=== PATIENT | female | born 1940 | race Caucasian/White ===

== ENCOUNTER 2017-01-03 11:50 | Outpatient (CLI) | payer MEDICARE ==
[~2017-01-03] VITALS: Ht 12.7 cm; Wt 69.0 kg
[2017-01-03] MEDS ORDERED: HYDRODIURIL50 MG PO (12:06)
[2017-01-03] MEDS ORDERED: SYNTHROID 0.0.025 MG PO (12:07)
[2017-01-03] MEDS ORDERED: ZOCOR 20MG20 MG PO (12:07)
[2017-01-03] MEDS ORDERED: COUMADIN 5MG5 MG/TAB PO (12:08)
[2017-01-03] MEDS ORDERED: COUMADIN 77.5 MG/TAB PO (12:09)
[2017-01-03] MEDS ORDERED: KLOR-CON M1515 MEQ PO (12:10)
[2017-01-03] MEDS ORDERED: CALCIUM 600MG+D1 TAB PO (12:11)
[2017-01-03] MEDS ORDERED: OCUVITE1 TA1 PO (12:11)
[2017-01-03] MEDS ORDERED: BIOTIN5000 MCG PO (12:12)
[2017-01-03] MEDS ORDERED: VITAMIN D31000 I1 PO (12:12)
[2017-01-03] MEDS ORDERED: B COMPLEX & B121 TAB (12:12)
[2017-01-03] MEDS ORDERED: CORDARONE200 MG/TAB PO (12:13)
[2017-01-03] MEDS ORDERED: PRIL40 PO (12:13)
[2017-01-03 12:24] VITALS: BP 178/95; PULSE 61; TEMP 97.8
[2017-01-03 13:17] VITALS: BP 173/95; PULSE 65
[2017-01-03] MEDS ORDERED: CEPHALEXIN500 M1 PO (14:18)
[2017-01-03 14:32] VITALS: BP 180/128; PULSE 70; TEMP 97.6
== END 2017-01-03 15:56 | disposition home or self-care (01) ==
LOC: EUO 11:50 → COL.CAR 12:00 → EUO 15:56
DX: I48.91 Unspecified atrial fibrillation (principal)
CPT/HCPCS: C1764